=== PATIENT | male | born 1955 | race Caucasian/White ===

== ENCOUNTER → 2019-08-03 | Outpatient (CLI) | payer OTHER ==
--- NOTE | 2019-08-03 10:56 | Diagnostic Imaging Report ---
INDICATION: Left ankle pain and swelling as well as redness. TECHNIQUE: Three views of the left ankle were obtained. FINDINGS: The alignment is normal. The ankle mortise is well maintained. The talar dome is smooth. No fracture or dislocation is identified. IMPRESSION: No acute abnormality is detected. Dictated by: Dictated on workstation # [id number]
== END ==
LOC: RAD FS 10:36
PROVIDERS: ATTEND Nurse Practitioner Family
DX: M25.472 Effusion, left ankle (principal)
CPT/HCPCS: 73610

== ENCOUNTER → 2020-12-21 | Outpatient (CLI) | payer OTHER ==
[2020-12-21 10:47] LABS: BILIRUBIN,URINE NEGATIVE (NEGATIVE); CLARITY,URINE CLEAR; COLOR,URINE YELLOW; GLUCOSE, URINE (UA) NEGATIVE (NEGATIVE); KETONES,URINE NEGATIVE (NEGATIVE); LEUKOCYTE ESTERASE ,URINE NEGATIVE (NEGATIVE); NITRITE,URINE NEGATIVE (NEGATIVE); PROTEIN,URINE NEGATIVE (NEGATIVE)
[2020-12-21 10:48] LABS: BACTERIA,URINE NEGATIVE /HPF; SQUAMOUS EPITHELIAL CELL,UR RARE /HPF; WBC,URINE RARE /HPF
== END ==
LOC: LAB FS 08:48
PROVIDERS: ATTEND Urology
DX: N40.0 Benign prostatic hyperplasia without lower urinary tract symptoms (principal)
CPT/HCPCS: 36415; 81000; 84153

== ENCOUNTER 2023-04-25 01:33 | Emergency (ER) | payer MEDICARE, OTHER ==
[~2023-04-25] VITALS: Ht 165.1 cm; Wt 74.8 kg
[2023-04-25] MEDS ORDERED: hydrALAZINE INJECTION 20 MG/ML VIAL IV STA (01:51)
--- NOTE | 2023-04-25 01:58 | ED General ---
General Stated Complaint: HIGH BP Source of Information: Patient History of Present Illness Date Seen by Provider: Apr 25, 2023 Time Seen by Provider: 01:35 Initial Comments 67-year-old male presenting with complaints of high blood pressure. He recently noticed that his lower number of the blood pressures have been running in to the 80s and 90s at times. He had seen Dr. Morrison his stone sandblaster this week and when he brought this up to him Dr. Morrison increased his dose of lisinopril from 5 mg to 10 mg. Patient already takes diltiazem as well for fast heart rate. He took his first dose of the 10 mg lisinopril this evening. However he did have blood work morning and had to be fasting for that. He was unsure if he took his diltiazem after he got home. When he was getting ready to go to bed he thought he should check his blood pressure just to see where it was out. He st ates it was like 130/92. Because it was slightly elevated he stated and kept checking his blood pressure. He states that he checked it probably at least 6 times. He at 1 point had fallen asleep and when he woke up he tried to check his blood pressure again thinking it would be lower because he had relaxed enough to fall asleep. However when he checked it it was still getting higher and he became more concerned. He took an additional 2.5 mg of lisinopril at midnight. When he continued to have blood pressure going up every time he checked it he decided to come to the emergency department. He denies having a headache, blurred vision, chest pain, nausea, numbness or tingling in his extremities, weakness. He is very worried about his blood pressure and was unsure what to do about the elevated blood pressure since it kept getting higher every time he checked it and was worrying about it. Timing/Duration: 4-6 Hours Severity: Moderate Modifying Factors: worse with Other (Stress and worry about his blood pressure seems to make it go higher as he continued to recheck his blood pressure over the last several hours) Associated Systoms: No Chest Pain, No Cough, No Diaphoresis, No Fever/Chills, No Headaches, No Loss of Appetite, No Malaise, No Nausea/Vomiting, No Rash, No Seizure, No Shortness of Air, No Syncope, No Weakness Allergies and Home Medications Allergies Coded Allergies: No Known Drug Allergies (Unverified , 04/25/23) Patient Home Medication List Home Medication List Reviewed: Yes Review of Systems Review of Systems Constitutional: No chills, No diaphoresis, No dizziness, No fever EENTM: no symptoms reported Respiratory: no symptoms reported Cardiovascular: No chest pain Gastrointestinal: No nausea, No vomiting Genitourinary: No dysuria Musculoskeletal: no symptoms reported Skin: no symptoms reported Psychiatric/Neurological: Denies Headache, Denies Numbness, Denies Paresthesia, Denies Weakness Past Imrzhoo-Wlzptp-Iorzxn Hx Past Medical History Surgery/Hospitalization HX: Hypertension, hypothyroidism Physical Exam Vital Signs Vital Signs - First Documented 04/25/23 01:42 Temp 36.7 Pulse 96 Resp 18 B/P (MAP) 190/117 (141) Pulse Ox 97 O2 Delivery Room Air Capillary Refill : Height, Weight, BMI Height: '" Weight: lbs. oz. kg; BMI Method: General Appearance: WD/WN, Anxious HEENT: PERRL/EOMI, Pharynx Normal Neck: Full Range of Motion, Normal Inspection, Non Tender, Supple Respiratory: Chest Non Tender, Lungs Clear, Normal Breath Sounds Cardiovascular: Regular Rate, Rhythm, Normal Peripheral Pulses Gastrointestinal: Normal Bowel Sounds, No Pulsatile Mass, Non Tender, Soft Back: No CVA Tenderness Extremity: Normal Capillary Refill, Normal Inspection, No Pedal Edema Neurologic/Psychiatric: Alert, Oriented x3, No Motor/Sensory Deficits, yard manager II- XII Norm as Tested Skin: Normal Color, Warm/Dry Progress/Results/Core Measures Suspected Sepsis SIRS Temperature: Pulse: Respiratory Rate: Laboratory Tests 04/25/23 01:54: White Blood Count 7.8 Blood Pressure / Mean: Laboratory Tests 04/25/23 01:54: Creatinine 1.15, INR Comment 0.9, Platelet Count 252, Total Bilirubin 0.5 Results/Orders Lab Results Laboratory Tests Test 04/25/23 01:54 Range/Units White Blood Count 7.8 4.3-11.0 10^3/uL Red Blood Count 4.77 4.30-5.52 10^6/uL Hemoglobin 14.2 13.3-17.7 g/dL Hematocrit 43 40-54 % Mean Corpuscular Volume 90 80-99 fL Mean Corpuscular Hemoglobin 30 25-34 pg Mean Corpuscular Hemoglobin Concent 33 32-36 g/dL Red Cell Distribution Width 12.5 10.0-14.5 % Platelet Count 252 130-400 10^3/uL Mean Platelet Volume 9.3 9.0-12.2 fL Immature Granulocyte % (Auto) 0 % Neutrophils (%) (Auto) 55 42-75 % Lymphocytes (%) (Auto) 27 12-44 % Monocytes (%) (Auto) 13 H 0-12 % Eosinophils (%) (Auto) 4 0-10 % Basophils (%) (Auto) 1 0-10 % Neutrophils # (Auto) 4.3 1.8-7.8 10^3/uL Lymphocytes # (Auto) 2.1 1.0-4.0 10^3/uL Monocytes # (Auto) 1.0 0.0-1.0 10^3/uL Eosinophils # (Auto) 0.3 0.0-0.3 10^3/uL Basophils # (Auto) 0.1 0.0-0.1 10^3/uL Immature Granulocyte # (Auto) 0.0 0.0-0.1 10^3/uL Prothrombin Time 12.6 12.2-14.7 SEC INR Comment 0.9 0.8-1.4 Activated Partial Thromboplast Time 29 24-35 SEC Sodium Level 142 135-145 MMOL/L Potassium Level 3.7 3.6-5.0 MMOL/L Chloride Level 105 98-107 MMOL/L Carbon Dioxide Level 26 21-32 MMOL/L Anion Gap 11 5-14 MMOL/L Blood Urea Nitrogen 11 7-18 MG/DL Creatinine 1.15 0.60-1.30 MG/DL Estimat Glomerular Filtration Rate 70 BUN/Creatinine Ratio 10 Glucose Level 131 H 70-105 MG/DL Calcium Level 10.2 H 8.5-10.1 MG/DL Corrected Calcium 9.8 8.5-10.1 MG/DL Magnesium Level 2.1 1.6-2.4 MG/DL Total Bilirubin 0.5 0.1-1.0 MG/DL Aspartate Amino Transf (AST/SGOT) 27 5-34 U/L Alanine Aminotransferase (ALT/SGPT) 35 0-55 U/L Alkaline Phosphatase 114 40-136 U/L Troponin I < 0.30 <0.30 NG/ML Pro-B-Type Natriuretic Peptide < 36.0 <125.0 PG/ML Total Protein 7.9 6.4-8.2 GM/DL Albumin 4.5 3.2-4.5 GM/DL My Orders Orders - JAN OVALLE MD Cbc And Automated Diff (04/25/23 01:51) Magnesium (04/25/23 01:51) Comprehensive Metabolic Panel (04/25/23 01:51) Protime With Inr (04/25/23 01:51) Partial Thromboplastin Time (04/25/23 01:51) Ed Iv/Invasive Line Start (04/25/23 01:51) Troponin I Fs (04/25/23 01:51) Probnp Fs (04/25/23 01:51) Hydralazine Injection (Hydralazine Injec (04/25/23 01:51) Vital Signs/I&O 04/25/23 01:42 Temp 36.7 Pulse 96 Resp 18 B/P (MAP) 190/117 (141) Pulse Ox 97 O2 Delivery Room Air Capillary Refill : Progress Note #1: Progress Note Differential diagnosis includes hypertensive urgency, anxiety, renal failure, hepatic failure, electrolyte imbalance, medication intolerance. If he did miss his dose of diltiazem morning I can be part of the reason that he was having elevated blood pressure tonight. Continue to recheck it is made him anxious which is contributing to his blood pressure running higher. He is not having any worrisome symptoms such as headache, blurred vision, vision change, numbness, tingling, nausea, vomiting, chest pain. Will check basic labs and establish peripheral IV. Send CBC, comprehensive metabolic profile, coagulation factors, magnesium, troponin, proBNP. Administer hydralazine 10 mg IV to try and help with the blood pressure. Progress Note #2: Time: 02:20 Progress Note Blood pressure has come down to 152/93. Blood count does not show acute abnormality to WBC or Hemoglobin. 0236 BP now down to 139/89. Since he is responding so well to the Hydralazine it seems likely that he missed his diltiazem dose and needed an additional dose of medicine. Advise him to ensure he takes his medicine as prescribed and give time for his new dosage to take effect. Check back with clinic and cardiology as needed for continued concerns. Progress Note #3: Time: 02:48 Progress Note Coagulation factors are not elevated or showing coagulopathy. The comprehensive metabolic profile did not show any acute electrolyte abnormalities to account for his elevated blood pressure. His troponin was less than 0.3. His magnesium was normal at 2.1. His blood pressure was down to 128/88. He continues to not have any symptoms of high blood pressure. Encourage patient to follow-up with primary care and cardiology as needed for continued concerns. Make sure he takes his medicines as prescribed. Is likely he may be missed the dose of diltiazem in the morning and then by continuing to check his blood pressure he was causing it to go higher as he worried about it. Departure Impression Primary Impression: Elevated blood pressure reading Disposition: HOME, SELF-CARE Condition: Improved Departure-Patient Inst. Decision time for Depature: 02:51 Referrals: [facility] (PCP) Primary Care Physician FLOWER VILA APRN (Family) Primary Care Physician Patient Instructions: DASH Diet, High Blood Pressure ED Add. Discharge Instructions: Give a little more time for your new dose of blood pressure medicines to help control your blood pressure Try to stay well-hydrated and get plenty of rest. Follow back up with [facility] as well as Dr. Morrison for continued concerns JAN OVALLE MD Apr 25, 2023 01:58
[2023-04-25 02:14] LABS: BASOPHILS # (AUTO) 0.1 10^3/uL (0.0-0.1); BASOPHILS % (AUTO) 1 % (0-10); EOSINOPHILS # (AUTO) 0.3 10^3/uL (0.0-0.3); EOSINOPHILS % (AUTO) 4 % (0-10); HEMATOCRIT 43 % (40-54); HEMOGLOBIN 14.2 g/dL (13.3-17.7); LYMPHOCYTES # (AUTO) 2.1 10^3/uL (1.0-4.0); LYMPHOCYTES % (AUTO) 27 % (12-44); MEAN CORPUSCULAR HEMOGLOBIN 30 pg (25-34); MEAN CORPUSCULAR HGB CONC 33 g/dL (32-36); MEAN CORPUSCULAR VOLUME 90 fL (80-99); MEAN PLATELET VOLUME 9.3 fL (9.0-12.2); MONOCYTES % (AUTO) 13 % (0-12); NEUTROPHILS # (AUTO) 4.3 10^3/uL (1.8-7.8); NEUTROPHILS % (AUTO) 55 % (42-75); PLATELET COUNT 252 10^3/uL (130-400); WHITE BLOOD COUNT 7.8 10^3/uL (4.3-11.0)
[2023-04-25 02:50] LABS: INR 0.9 (0.8-1.4); PROTHROMBIN TIME PATIENT 12.6 SEC (12.2-14.7)
[2023-04-25 02:51] LABS: BUN/CREATININE RATIO 10; CARBON DIOXIDE 26 MMOL/L (21-32); CHLORIDE 105 MMOL/L (98-107); CREATININE SERUM 1.15 MG/DL (0.60-1.30); GFR ESTIMATED 70; POTASSIUM 3.7 MMOL/L (3.6-5.0); SODIUM 142 MMOL/L (135-145)
[2023-04-25 02:52] VITALS: BP 128/88
[2023-04-25 02:52] LABS: ALANINE AMINOTRANSFERASE 35 U/L (0-55); ALKALINE PHOSPHATASE 114 U/L (40-136); BILIRUBIN,TOTAL 0.5 MG/DL (0.1-1.0); CALCIUM 10.2 MG/DL (8.5-10.1); GLUCOSE 131 MG/DL (70-105); MAGNESIUM 2.1 MG/DL (1.6-2.4)
[2023-04-25 02:53] LABS: ALBUMIN 4.5 GM/DL (3.2-4.5); TOTAL PROTEIN 7.9 GM/DL (6.4-8.2)
== END 2023-04-25 02:52 | disposition home or self-care (01) ==
LOC: ER FS 01:33 → EDUNIT# 01:33 → ER FS 02:52
DX: I10 Essential (primary) hypertension (principal)
CPT/HCPCS: 36415; 80053; 83735; 83880; 84484; 85025; 85610; 85730

== ENCOUNTER → 2023-05-16 | Outpatient (CLI) | payer MEDICARE, OTHER | LOC: LAB FS 11:43 | PROVIDERS: ATTEND Urology | DX: R97.20 Elevated prostate specific antigen [PSA] (principal) | CPT/HCPCS: 36415; 84153 ==